=== PATIENT | female | born 1975 ===

== ENCOUNTER → 2017-11-04 | Outpatient (CLI) | payer OTHER ==
[~2017-11-04] VITALS: Ht 152.4 cm; Wt 62.6 kg
== END | disposition home or self-care (01) ==
LOC: PPHC 14:50
DX: B34.9 Viral infection, unspecified (principal)

== ENCOUNTER 2023-04-26 15:25 | Emergency (ER) | payer OTHER ==
[~2023-04-26] VITALS: Ht 170.2 cm; Wt 64.9 kg
[2023-04-26] MEDS ORDERED: SYEDA 28 TABLE1 EACH (16:04)
== END 2023-04-26 18:46 | disposition home or self-care (01) ==
LOC: ER 15:25
DX: S90.121A Contusion of right lesser toe(s) without damage to nail, initial encounter (principal); X58.XXXA Exposure to other specified factors, initial encounter; Y93.9 Activity, unspecified; Y92.9 Unspecified place or not applicable; Y99.9 Unspecified external cause status